=== PATIENT | female | born 1970 | race Caucasian/White ===

== ENCOUNTER → 2017-03-30 | Outpatient (REF) | LOC: ZLAB.WCH 18:04 | DX: Z01.89 Encounter for other specified special examinations (principal) ==

== ENCOUNTER 2020-12-05 10:02 | Day surgery (SDC) | payer BC ==
[~2020-12-05] VITALS: Ht 160 cm; Wt 100.5 kg
[2020-12-05] MEDS ORDERED: PAXIL 20MG20 MG PO (10:58)
[2020-12-05 11:03] VITALS: BP 148/87; PULSE 75; TEMP 98.3
[2020-12-05 13:17] VITALS: BP 130/82; PULSE 69
--- NOTE | 2020-12-05 13:17 | NUR ---
Patient returns to room 5 per cart from surgery accompanied by Sheba RN and Suhas RN and is awake and alert. Temp 97.9 and room air sats 100. Bilateral bulky dressings on feet dry and intact. Denies pain or nausea. Drinking water.
[2020-12-05 13:32] VITALS: BP 134/90; PULSE 62
--- NOTE | 2020-12-05 13:32 | NUR ---
Resting and drinking water. Continues to deny pain or nausea.
[2020-12-05 13:47] VITALS: BP 133/83; PULSE 63
--- NOTE | 2020-12-05 13:47 | NUR ---
Eating toast. Denies pain or nausea.
--- NOTE | 2020-12-05 14:00 | NUR ---
IV discontinued and site is free of redness. Patient dresses self.
--- NOTE | 2020-12-05 14:05 | NUR ---
Dismissal instructions signed. Awaits ride home.
--- NOTE | 2020-12-05 14:30 | NUR ---
Patient dismissed to home driven by spouse and taken to the front door per wheelchair and assisted into vehicle with dismissal instructions in hand.
== END 2020-12-05 14:30 | disposition home or self-care (01) ==
LOC: SDCO 10:02
DX: M77.32 Calcaneal spur, left foot (principal); M77.31 Calcaneal spur, right foot; F41.9 Anxiety disorder, unspecified; F31.81 Bipolar II disorder; E66.9 Obesity, unspecified; Z68.37 Body mass index [BMI] 37.0-37.9, adult; Z79.899 Other long term (current) drug therapy
CPT/HCPCS: J0690; J2704; J3010; J3301; J7120